=== PATIENT | male | born 1945 | race Caucasian/White ===

== ENCOUNTER 2021-06-27 12:40 | Outpatient (CLI) | payer MEDICARE, BC | END 2021-06-27 12:41 | disposition home or self-care (01) | LOC: CSHMRI 12:40 | PROVIDERS: ATTEND Physician Assistant | DX: C49.9 Malignant neoplasm of connective and soft tissue, unspecified (principal); R59.0 Localized enlarged lymph nodes; R91.8 Other nonspecific abnormal finding of lung field | CPT/HCPCS: 71260; 82565 ==

== ENCOUNTER 2021-11-15 09:57 | Outpatient (CLI) | payer MEDICARE, BC ==
[~2021-11-15 09:57] MED LIST: Iopamidol 300 61% 100 ML VIAL FS ONE; Magnevist 469MG/ML 20 ML VIAL ONE
== END 2021-11-15 09:58 | disposition home or self-care (01) ==
LOC: CSHMRI 09:57
PROVIDERS: ATTEND Physician Assistant
DX: C49.9 Malignant neoplasm of connective and soft tissue, unspecified (principal); R59.0 Localized enlarged lymph nodes; J98.4 Other disorders of lung
CPT/HCPCS: 71260; 82565; A9579; Q9967

== ENCOUNTER 2021-12-19 13:35 | Outpatient (CLI) | payer MEDICARE, BC | END 2021-12-19 13:36 | disposition home or self-care (01) | LOC: CSHMRI 13:35 | PROVIDERS: ATTEND Anesthesiology | DX: M54.16 Radiculopathy, lumbar region (principal); R53.1 Weakness; G95.9 Disease of spinal cord, unspecified; M47.816 Spondylosis without myelopathy or radiculopathy, lumbar region | CPT/HCPCS: 72148 ==

== ENCOUNTER 2024-03-04 08:10 | Outpatient (CLI) | payer MEDICARE | END 2024-03-04 08:11 | disposition home or self-care (01) | LOC: CSHCT 08:10 | PROVIDERS: ATTEND Internal Medicine Cardiovascular Disease | DX: I77.810 Thoracic aortic ectasia (principal); I51.7 Cardiomegaly | CPT/HCPCS: 71275; 82565 ==